=== PATIENT | female | born 1960 | race Caucasian/White ===

== ENCOUNTER 2020-06-02 08:09 | Observation (INO) ==
[~2020-06-02 08:09] MED LIST: Buffered Lidocaine 1% SYRIN 1 ml INTRADERM ONE; Lactated Ringers 1000 ml BAG 1,000 ML IV SCH
[2020-06-02] MEDS ORDERED: Midazolam 5 mg/5 ml VIAL 1 mg/ml 5 ml VIAL (5 mg) ONE (08:28)
[2020-06-02] MEDS ORDERED: ceFAZolin 2 GM PREMIX 2 GM/50 ML BAG ONE (08:58)
[2020-06-02] MEDS ORDERED: Ondansetron 4 mg VIAL 2 MG/ML 2 ml VIAL IV PRN ×2 (09:45→13:18)
[2020-06-02] MEDS ORDERED: DiMENhydriNATE IV 50 mg/ml 1 ml VIAL IV PUSH PRN (09:45)
[2020-06-02] MEDS ORDERED: Naloxone 0.4 mg VIAL 0.4 mg/ml 1 ml VIAL IV PRN (09:45)
[2020-06-02] MEDS ORDERED: oxyCODONE/Acetamin 5/325 mg TAB PO PRN (09:45)
[2020-06-02] MEDS ORDERED: fentaNYL 100 mcg/2 ml 50 MCG/ML VIAL ONE ×3 (09:56→14:34)
[2020-06-02] MEDS ORDERED: Dexmedetomidine 200 mcg/2 ml 2 ml VIAL (200 mcg) ONE (09:56)
[2020-06-02] MEDS ORDERED: Ondansetron 4 mg VIAL 2 MG/ML 2 ml VIAL ONE (11:41)
[2020-06-02] MEDS ORDERED: Propofol 10 MG/ML 20 ML BTL ONE (12:03)
[2020-06-02] MEDS ORDERED: Lactulose 30 ml UDC PO PRN (13:18)
[2020-06-02] MEDS ORDERED: Magnesium Hydroxide LIQ 30 ML UDC PO PRN (13:18)
[2020-06-02] MEDS ORDERED: Ondansetron ODT 4 mg TAB 4 MG TAB PO PRN (13:18)
[2020-06-02] MEDS ORDERED: diPHENhydraMINE IV 50 MG/ML 1 ml VIAL (BENADRYL) IV PRN (13:18)
[2020-06-02] MEDS ORDERED: diPHENhydraMINE 25 mg TAB PO PRN (13:18)
[2020-06-02] MEDS ORDERED: Albuterol HFA INHALER 8 gm MDI INH PRN (13:24)
[2020-06-02] MEDS ORDERED: Metoclopramide 5 MG/ML VIAL (10 mg) IV PRN (13:37)
[2020-06-02] MEDS: fentaNYL 100 mcg/2 ml 50 MCG/ML VIAL IV PRN ×3 (13:37→14:35)
[2020-06-02] MEDS ORDERED: DiMENhydriNATE IV 50 mg/ml 1 ml VIAL ONE (14:40)
[2020-06-02] MEDS: Lactated Ringers 1000 ml BAG 1,000 ML IV SCH (15:53)
[2020-06-02] MEDS: ceFAZolin 1 GM ADVAN 1 GM in NS 0.9% 50 ML 50 ML IVPB SCH (17:41)
[2020-06-02] MEDS: Morphine 2 MG/ML SYRINGE IV PRN (19:10)
[2020-06-02] MEDS: Magnesium Hydroxide LIQ 30 ML UDC PO SCH (21:09)
[2020-06-03] MEDS: ceFAZolin 1 GM ADVAN 1 GM in NS 0.9% 50 ML 50 ML IVPB SCH ×2 (01:30→10:01)
[2020-06-03] MEDS: Morphine 2 MG/ML SYRINGE IV PRN (01:38)
[2020-06-03] MEDS: Lactated Ringers 1000 ml BAG 1,000 ML IV SCH (01:38)
[2020-06-03 04:57] LABS: Hematocrit 33 % (35-47); Hemoglobin 11.5 g/dL (12.0-16.0); Mean Platelet Volume 9.3 fL (7.4-10.4); Platelet Count 217 10^3/uL (150-450)
[2020-06-03 05:14] LABS: BUN/Creatinine Ratio 21.7 (8-20); Calcium 7.6 mg/dL (8.6-10.3); EGFR African American 124.2 (>60); EGFR Non-African American 102.7 (>60); Potassium 3.5 mmol/L (3.5-5.0)
[2020-06-03] MEDS ORDERED: PTO:Fluticasone/Vilanterol MDI(NF) 200/25 MDI INH SCH (09:00)
[2020-06-03] MEDS ORDERED: Vitamin THERAPEUTIC TAB PO SCH (09:00)
[2020-06-03] MEDS ORDERED: SPIRIVA RESPIMAT INH SCH (09:00)
[2020-06-03] MEDS ORDERED: MAGNESIUM 250 MG PO SCH (09:00)
[2020-06-03] MEDS: Magnesium Hydroxide LIQ 30 ML UDC PO SCH (10:00)
[2020-06-03 11:06] VITALS: BP 113/62
[2020-06-03] MEDS ORDERED: Enoxaparin 30 MG/0.3 ML SYR SUBCUT ONE (13:02)
== END 2020-06-03 15:21 | disposition home or self-care (01) ==
LOC: SSU 08:09 → OR 08:09
PROVIDERS: ADMIT Orthopaedic Surgery Adult Reconstructive Orthopaedic Surgery; ATTEND Orthopaedic Surgery Adult Reconstructive Orthopaedic Surgery

== ENCOUNTER 2023-06-22 23:43 | Inpatient (IN) ==
[2023-06-23] MEDS: Albuterol/Ipratropium NEB.SOL (2.5/0.5 MG) 3 ML NEB.SOLN INH ONE (00:18)
[2023-06-23] MEDS: Lactated Ringers 1000 ml BAG 1,000 ML IV ONE (00:18)
[2023-06-23] MEDS ORDERED: Albuterol HFA INHALER 8 gm MDI INH PRN (02:22)
[2023-06-23] MEDS: Enoxaparin 40 MG/0.4 ML SYR SUBCUT SCH (03:13)
[2023-06-23 06:36] LABS: Albumin 2.5 g/dL (3.2-5.2); Calcium 7.9 mg/dL (8.6-10.3); Creatinine, Serum 0.66 mg/dL (0.51-0.95); Globulin 2.6 g/dL (2-4); Magnesium 1.9 mg/dL (1.9-2.7); Potassium 3.7 mmol/L (3.5-5.0); Total Bilirubin 0.5 mg/dL (0.2-1.0); Total Protein 5.1 g/dL (6.4-8.9); eGFR CKD-EPI 99.7 (>60)
[2023-06-23 07:04] LABS: Hematocrit 35.9 % (35-45); Hemoglobin 12.2 g/dL (11.5-14.3); Mean Corpuscular Hemoglobin 30.3 pg (27-33); Mean Corpuscular Hgb Conc 33.8 g/dL (31-36); Mean Corpuscular Volume 89.6 fL (80-97); Mean Platelet Volume 10.5 fL (7.5-11.2); Platelet Count 235 10^3/uL (150-450); Red Blood Count 4.01 10^6/uL (3.63-4.92); Red Cell Distribution Width 13.3 % (12-17); White Blood Count 10.3 10^3/uL (3.8-11.8)
[2023-06-23] MEDS: Mometasone/Formoter 200/5 MDI INH SCH (07:48)
[2023-06-23 07:57] LABS: ABS Lymphocytes 0.3 10^3/uL (1.0-4.8); ABS Monocytes 0.5 10^3/uL (0.0-0.9); ABS Neutrophils 9.4 10^3/uL (1.5-7.6); Lymphocyte % 3.4 %
[2023-06-23] MEDS: SPIRIVA Respimat (tiotropium) 2.5 mcg/inh Inhaler INH SCH (08:46)
[2023-06-23 09:15] LABS: C Reactive Protein 327.07 mg/L (<8.01)
[2023-06-23] MEDS: CMCS:Estradiol 1 mg TAB (NF) PO SCH (09:20)
[2023-06-23] MEDS: cefTRIAXone 1 gm/50 mL D5W 1 GM/50 ML BAG IV SCH (11:20)
[2023-06-23] MEDS ORDERED: Albuterol 2.5mg/3 ml (0.083%) NEB.SOLN INH PRN (12:52)
[2023-06-23] MEDS: methylPREDNISolone SOD SUCC 40 mg/ml 1 ml VIAL IV SCH (13:50)
[2023-06-23] MEDS: Albuterol/Ipratropium NEB.SOL (2.5/0.5 MG) 3 ML NEB.SOLN INH SCH (16:17)
[2023-06-23] MEDS: Benzocaine/Menthol LOZ MT PRN (18:15)
[2023-06-24 02:03] LABS: ABS Lymphocytes 0.6 10^3/uL (1.0-4.8); ABS Monocytes 0.6 10^3/uL (0.0-0.9); ABS Neutrophils 5.6 10^3/uL (1.5-7.6); Hematocrit 36.6 % (35-45); Hemoglobin 12.5 g/dL (11.5-14.3); Lymphocyte % 8.9 %; Mean Corpuscular Hemoglobin 30.5 pg (27-33); Mean Corpuscular Hgb Conc 34.2 g/dL (31-36); Mean Corpuscular Volume 89.2 fL (80-97); Mean Platelet Volume 9.7 fL (7.5-11.2); Nucleated Red Blood Cells % 0.1 %/100WBC (0.0-0.8); Platelet Count 228 10^3/uL (150-450); Red Cell Distribution Width 13.7 % (12-17); White Blood Count 6.8 10^3/uL (3.8-11.8)
[2023-06-24 06:23] LABS: Hematocrit 36.5 % (35-45); Hemoglobin 12.5 g/dL (11.5-14.3); Mean Corpuscular Hemoglobin 30.5 pg (27-33); Mean Corpuscular Hgb Conc 34.1 g/dL (31-36); Mean Corpuscular Volume 89.5 fL (80-97); Mean Platelet Volume 9.8 fL (7.5-11.2); Platelet Count 237 10^3/uL (150-450); Red Blood Count 4.08 10^6/uL (3.63-4.92); Red Cell Distribution Width 13.6 % (12-17); White Blood Count 6.1 10^3/uL (3.8-11.8)
[2023-06-24 06:46] LABS: ABS Lymphocytes 0.6 10^3/uL (1.0-4.8); ABS Monocytes 0.6 10^3/uL (0.0-0.9); ABS Neutrophils 4.9 10^3/uL (1.5-7.6); Lymphocyte % 9.8 %
[2023-06-24 06:57] LABS: Creatinine, Serum 0.53 mg/dL (0.51-0.95); Magnesium 2.3 mg/dL (1.9-2.7); Phosphorus 3.9 mg/dL (2.5-5.0); Potassium 4.1 mmol/L (3.5-5.0); eGFR CKD-EPI 105.2 (>60)
[2023-06-24] MEDS: COVID VAC 23-24(12+)(Moderna) SYR 0.5 ML IM ONE (11:55)
[2023-06-24] MEDS: Albuterol/Ipratropium NEB.SOL (2.5/0.5 MG) 3 ML NEB.SOLN INH SCH (19:14)
[2023-06-25 07:39] LABS: Hematocrit 37.1 % (35-45); Hemoglobin 12.5 g/dL (11.5-14.3); Mean Corpuscular Hemoglobin 30.2 pg (27-33); Mean Corpuscular Hgb Conc 33.6 g/dL (31-36); Mean Platelet Volume 10.2 fL (7.5-11.2); Platelet Count 239 10^3/uL (150-450); Red Blood Count 4.12 10^6/uL (3.63-4.92); Red Cell Distribution Width 13.6 % (12-17); White Blood Count 8.1 10^3/uL (3.8-11.8)
[2023-06-25 08:06] LABS: Creatinine, Serum 0.55 mg/dL (0.51-0.95); Magnesium 2.2 mg/dL (1.9-2.7); Potassium 4.6 mmol/L (3.5-5.0); eGFR CKD-EPI 104.2 (>60)
[2023-06-25 09:12] LABS: ABS Lymphocytes 0.6 10^3/uL (1.0-4.8); ABS Monocytes 0.9 10^3/uL (0.0-0.9); ABS Neutrophils 6.6 10^3/uL (1.5-7.6); Lymphocyte % 7.4 %
[2023-06-26 07:54] LABS: Hematocrit 37.6 % (35-45); Hemoglobin 12.6 g/dL (11.5-14.3); Mean Corpuscular Hgb Conc 33.5 g/dL (31-36); Mean Corpuscular Volume 89.5 fL (80-97); Mean Platelet Volume 9.7 fL (7.5-11.2); Platelet Count 220 10^3/uL (150-450); Red Cell Distribution Width 13.2 % (12-17); White Blood Count 6.7 10^3/uL (3.8-11.8)
[2023-06-26 08:11] LABS: C Reactive Protein 31.39 mg/L (<8.01); Creatinine, Serum 0.55 mg/dL (0.51-0.95); Magnesium 2.1 mg/dL (1.9-2.7); Potassium 3.7 mmol/L (3.5-5.0); eGFR CKD-EPI 104.2 (>60)
[2023-06-26 10:13] LABS: ABS Lymphocytes 0.5 10^3/uL (1.0-4.8); ABS Monocytes 0.8 10^3/uL (0.0-0.9); ABS Neutrophils 5.4 10^3/uL (1.5-7.6)
[2023-06-26] MEDS: methylPREDNISolone SOD SUCC 40 mg/ml 1 ml VIAL IV SCH (15:51)
[2023-06-27 07:03] LABS: Calcium 7.9 mg/dL (8.6-10.3); Creatinine, Serum 0.51 mg/dL (0.51-0.95); Potassium 3.7 mmol/L (3.5-5.0); eGFR CKD-EPI 106.1 (>60)
[2023-06-27 08:10] LABS: Hemoglobin 12.9 g/dL (11.5-14.3); Mean Corpuscular Hemoglobin 29.9 pg (27-33); Mean Corpuscular Hgb Conc 33.9 g/dL (31-36); Mean Corpuscular Volume 88.4 fL (80-97); Red Cell Distribution Width 13.4 % (12-17); White Blood Count 6.9 10^3/uL (3.8-11.8)
[2023-06-27 10:12] LABS: ABS Lymphocytes 0.6 10^3/uL (1.0-4.8); ABS Monocytes 0.9 10^3/uL (0.0-0.9); ABS Neutrophils 5.4 10^3/uL (1.5-7.6); ABS Nucleated RBC 0.01 10^3/ul; Lymphocyte % 8.1 %; Mean Platelet Volume 9.5 fL (7.5-11.2); Nucleated Red Blood Cells % 0.2 %/100WBC (0.0-0.8); Platelet Count 239 10^3/uL (150-450)
[2023-06-27 11:11] VITALS: BP 138/84
== END 2023-06-27 11:40 | disposition home or self-care (01) | DRG 133 ==
LOC: ED 23:43 → SUATTDRO 06-23 00:36 → EDHOLD 06-23 00:36 → MEDTELE 06-23 07:40
PROVIDERS: ADMIT Internal Medicine; ATTEND Internal Medicine